=== PATIENT | male | born 1940 | race Caucasian/White ===

== ENCOUNTER → 2024-06-18 | Outpatient (BNVA) | payer MEDICARE, BC, SELFPAY | END | disposition home or self-care (01) | PROVIDERS: PCP Internal Medicine; Referring Provider Internal Medicine; Visit Provider Urology | DX: N32.89 Other specified disorders of bladder (principal); N32.3 Diverticulum of bladder; N40.1 Benign prostatic hyperplasia with lower urinary tract symptoms; N13.8 Other obstructive and reflux uropathy; C61 Malignant neoplasm of prostate; I10 Essential (primary) hypertension; J44.9 Chronic obstructive pulmonary disease, unspecified | CPT/HCPCS: 52000; 81003; A4217; A4649; C1894; J3260; A9270 ==

== ENCOUNTER → 2024-07-02 | Outpatient (BNVA) | payer MEDICARE, BC, SELFPAY | END | disposition home or self-care (01) | PROVIDERS: PCP Family Medicine; Referring Provider Family Medicine; Visit Provider Urology | DX: C61 Malignant neoplasm of prostate (principal); Z90.79 Acquired absence of other genital organ(s); Z46.6 Encounter for fitting and adjustment of urinary device; I10 Essential (primary) hypertension; J44.9 Chronic obstructive pulmonary disease, unspecified | CPT/HCPCS: 99212; G0463 ==

== ENCOUNTER → 2024-07-02 | Outpatient (CLI) | payer MEDICARE, BC, SELFPAY ==
--- NOTE | 2024-07-02 10:42 | XR_ITS ---
Examination: Cystogram with KUB Fluoroscopy 12 spot fluoroscopic films of the bladder AP KRUGER PERUVIAN crosstable lateral pelvis films Exam date and time: July 02, 2024 1048 hours INDICATIONS: Post prostate surgery one week ago TECHNIQUE AND FINDINGS: 300 cc Cystografin instilled with 12 spot fluoroscopic films of the bladder fluoroscopy time 0.22 minutes Urinary bladder appears intact Bladder is trabeculated No ureteral reflux IMPRESSION: Intact urinary bladder
== END | disposition home or self-care (01) ==
LOC: CDIM 10:31
PROVIDERS: Referring Provider Urology; Visit Provider Urology
DX: C61 Malignant neoplasm of prostate (principal)
CPT/HCPCS: 51600; 74430; Q9958

== ENCOUNTER → 2024-09-01 | Outpatient (CLI) | payer MEDICARE, BC, SELFPAY ==
[2024-09-01 17:07] LABS: Prostate Specific Antigen < 0.10 ng/mL (0-4.00)
== END | disposition home or self-care (01) ==
PROVIDERS: PCP Internal Medicine; Referring Provider Radiology Therapeutic Radiology; Visit Provider Radiology Therapeutic Radiology
DX: C61 Malignant neoplasm of prostate (principal)
CPT/HCPCS: 36415; 84153

== ENCOUNTER 2024-09-11 08:49 | Outpatient (RCR) | payer MEDICARE, BC, SELFPAY ==
--- NOTE | 2024-09-01 16:59 | CTCCONSULT_ITS ---
[facility] [address] [place], [place] [address] Consultation Note Date: 09/01/2024 MR#: [id number] Name: BOB MEADOWS : 1940 Dx: C61 Malignant neoplasm of prostate Attending physician. Lee España MD Referring physician. Dhara Thompson MD Reason for consultation. Patient was prostate CA status post radical prostatectomy pT3aN1 referr ed for postop radiation therapy History of Present Illness: Patient is a 84-year-old gentleman following elevated PSA of 19.0 on 02/18 and prostate biopsy 05/08/2024 [place] 6 or 7 CA the prostate who underwent radical prostatectom y for prostate CA 06/24/[address] Canales at [facility]. The tumor was group 5 [place] score 4+5 = 9 acinar adenocarcinoma extraprostatic extension noted, invasive carcinoma present at margin 1 of 10 lymph nodes removed had mets. pT3aN1. Imaging studies of abdominal pelvis preop 06/23/2024 haroldo wed no evidence of mets. Posttreatment PSA reportedly was rising not available to myself. Patient n ow referred for radiation oncology consultation. Past Medical History: COPD high blood pressure kidney stones mumps prostatism Meds. 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 Review of Systems: Has had leaky urine since surgery. Physical Exam: General: Adequate nourished appearing gentleman in no acute distress HEENT: Atraumatic normocephalic extraocular is intact no oral lesions no cervical or supraclavicular apathy CV: Chest clear to auscultation heart regular rate and rhythm ABD: Soft no organomegaly or tenderness EXT: No signs of clubbing or edema Assessment:1. pT3pN1 group 5 Sharmaine's 9 CA o 06/24/2024 Prostate CA status post radical prostatectom y [facility]. 2. Rising PSA reportedly noted at [facility] result not immediately available to myself. 3. Considering the high risk features noted at time of surgery and rising PSA I believe that postope ration radiation therapy is justified along with concomitant Lupron injections 1 to 2 years worth. 6 840 cGy via modern VMAT method was discussed with patient with side effects explained. 4.. Thank you very much for allow me to evaluate this very nice patient. Cc: Lee Thompson MD Electronically signed by: Rajat Price MD, DABR 09/01/2024 4:56 PM
--- NOTE | 2024-09-01 17:01 | CTCTXPLNST_ITS ---
[facility] [place] [address] [place], [place] [address] Physician Clinical Treatment Planning Note Date of Service: 09/01/2024 Name: BOB MEADOWS : 1940 The patient has agreed to proceed with Radiation therapy. Tests and supporting medical records were interpreted to assist in defining the tumor location and extent of disease. Further imaging will be necessary to contour and delineate the volume to which the XRT will be provided. A. Treatment Intent: Curative B. Modality: 10 MV C. Requested Technique: VMAT D. Treatment Site: Pelvis E. Critical structures to be contoured on plan: F. In order to accomplish this plan, I am ordering/Prescribing the followin. Simulations (s) will be performed to accomplish a reproducible treatment position, to determine op timal treatment portals/beam arrangements, to design beam modifying devices and verify treatment port als on patient prior to the commencement of Radiation Therapy. Pelvis 2. Devices; for immobilization and beam shaping: Vac-Didier 3. CT Guidance for placement of XRT cabrera Scan area: 4. Portal images Frequency: 5. Invivo transit dose measurement once per week on all VMAT patients. 6. Special Physics Consult Requested for: 7. Other requests: G. Dose Objectives: Curative Electronically signed by: Rajat Price M.D. 09/01/2024 4:59 PM
--- NOTE | 2024-09-01 17:03 | CTCTXPLNST_ITS ---
Radiation Oncology Treatment Planning Sheet Name: BOB MEADOWS MR#: [id number] : 1940 Dx: C61 Malignant neoplasm of prostate Date of Service: 09/01/2024 Account #: ?? Pt Treatment Intent: curative palliative other: Stage: Procedure CPT # Ordered Spec. Procedure 12080 Fabian Complex (set-up) 49453 pelvis 1 Fabian Simple 64475 IMRT Plan 99044 1 MLC Devices VMAT 97825 3 Fabian 3 D 89848 TRTMT dev Complex 26515 Vac-Didier 1 TRTMT dev simple 68361 Basic Adam 76176 6 Special Dosimetry 11015 Spec Physics 30929 Port Films 48469 SRS Cranial/1FX 32014 SBR 5 FX or Less /ex: 5 = 5 fx 25794 IMRT Simple 29391 24845 38 IMRT Complex 37685 IGRT 77689 35 Rad del com 6-10 57306 Rad del com 11- 13356 Cont Med Physics 54571 7 Treatment Planning 71221 1 Rad del com 20 mev 66442 Rad del inter 6-10 65038 Rad del inter 11 77579 Rad del simple 6-10 25855 Rad del simple 11-19 08241 Special Port Plan 63532 TRTMT dev inter 51387 Isodose Complex 29239 Isodose simple 86787 Resp Motion Mgmt Simulation 16131 Placement of Fiducial Markers 66549 Electronically Signed By: Rajat Price MD, DABR 09/01/2024 5:00 PM
== END 2024-09-11 23:59 | disposition home or self-care (01) ==
LOC: SCTC 08:49
PROVIDERS: PCP Family Medicine; Referring Provider Urology; Visit Provider Radiology Therapeutic Radiology
DX: Z51.0 Encounter for antineoplastic radiation therapy (principal); C61 Malignant neoplasm of prostate; Z90.79 Acquired absence of other genital organ(s); Z79.818 Long term (current) use of other agents affecting estrogen receptors and estrogen levels
CPT/HCPCS: 77014; 77290; 77300; 77301; 77334; 77338; 77385

== ENCOUNTER 2024-10-09 09:01 | Outpatient (RCR) | payer MEDICARE, BC, SELFPAY ==
--- NOTE | 2024-09-14 14:30 | CTCTRTNOTE_ITS ---
[facility] [address] [place], [place] [address] Weekly Management Date: 09/14/2024 ?? Name: BOB MEADOWS : 1940 A. Patient is currently at 720 cGy. B. Patient is tolerating treatment well. C. Resume radiation therapy. Electronically signed by: Rajat Price M.D. 09/14/2024 2:28 PM
== END 2024-10-09 23:59 | disposition home or self-care (01) ==
LOC: SCTC 09:01
PROVIDERS: PCP Internal Medicine; Referring Provider Internal Medicine; Visit Provider Radiology Therapeutic Radiology
DX: Z51.0 Encounter for antineoplastic radiation therapy (principal); C61 Malignant neoplasm of prostate
CPT/HCPCS: 77336; 77385

== ENCOUNTER 2024-10-11 12:15 | Inpatient (IN) | payer MEDICARE, BC, SELFPAY ==
[2024-10-11] VITALS (8 sets, daily range): BP systolic 133–151; BP diastolic 75–92; PULSE 75–98; RESP 16–98; TEMP 36.2–37.1; O2SAT 95–97; BMI 23.3
--- NOTE | 2024-10-11 12:32 | EKG_ITS ---
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
--- NOTE | 2024-10-11 12:32 | XR_ITS ---
Examination: CT brain head without contrast. 2-D sagittal coronal reconstructions Date and time of exam:October 11, 2024 1230 hrs. Indications: Stroke alert, onset focal neurologic deficit beginning 10:00 AM CTDI: vol (mGy):52.1 DLP: (mGycm):1049 Technique: Multiple CT axial sections of the brain have been obtained, 5 mm slice thickness. Contrast has not been administered. 2-D sagittal, coronal reconstructions have been obtained Low dose protocols were performed. One or more of the following dose reduction techniques were used; automated exposure control, adjustment of the mA and/or KV according to patient size, use of iterative reconstruction technique. Findings: No significant ventricular enlargement. Intra-axial or extra-axial hemorrhage density is not seen. No mass effect or midline shift Basal cisterns are not remarkable. Fourth ventricle is midline. Cranial vault intact. Impression: Negative for acute hemorrhage, mass effect or midline shift
--- NOTE | 2024-10-11 12:32 | XR_ITS ---
Examination: CTA carotids with intravenous contrast CTA brain, head with intravenous contrast. 2-D sagittal, coronal reconstructions. 3-D reconstructions. Exam date and time: October 11, 2024 1240 hrs. Indications: Stroke alert, onset focal neurologic deficit today CTDI: vol (mGy) 21.6 DLP: (mGycm) 478 Technique: Multiple CTA axial brain, head carotid images post intravenous contrast injection 75 cc, Isovue-370. 2-D sagittal, coronal reconstructions. 3-D reconstructions, 3-D post processing including vascular maximum intensity projection images. Low dose protocols were performed. One or more of the following dose reduction techniques were used; automated exposure control, adjustment of the mA and/or KV according to patient size, use of iterative reconstruction technique. Findings: No significant common carotid carotid bifurcation or internal carotid artery stenoses Dominant left vertebral artery with no significant stenoses No cerebral large vessel arterial occlusions or thrombus Impression: No significant neck arterial stenoses No cerebral large vessel arterial occlusions or thrombus
--- NOTE | 2024-10-11 12:33 | PD.EDRME ---
Rapid Medical Screening Exam RME Arrival date/time: 10/11/24 12:15 84 yo m present to Ed for c/o of alter mental status, searching for words per . last well known was 1 hour ago. I have greeted and performed a focused initial assessment of this patient. A comprehensive ED assessment and evaluation of the patient, analysis of all test results, and completion of the medical decision making process will be conducted by additional ED providers. Chief Complaint: General Adult/Misc Complain Time Seen by Provider: 10/11/24 12:26 Vital signs: Vital Signs Temperature 98.7 F 10/11/24 12:25 Pulse Rate 98 10/11/24 12:25 Respiratory Rate 16 10/11/24 12:25 Blood Pressure 151/91 H 10/11/24 12:25 Pulse Oximetry (%) 95 10/11/24 12:25 Oxygen Delivery Method Room Air 10/11/24 12:25
--- NOTE | 2024-10-11 12:55 | PRELIM_ITS ---
CT scan of the head without intravenous contrast (axial sections with sagittal and coronal reformats) October 11, 2024 1234 hours Clinical history: Focal neuro deficit, stroke suspected. Comparison: No prior study is available for comparison at the time of interpretation Findings: There is no evidence of intracranial hemorrhage, mass effect or midline shift. There are periventricular white matter hypodensities, compatible with chronic small vessel ischemia. There is moderate volume loss. The calvarium is unremarkable. Moderate mucosal thickening is seen in bilateral ethmoid sinuses. The mastoid air cells and the other visualized paranasal sinuses are clear. Impression: No evidence of intracranial hemorrhage, mass effect or midline shift. If there are persistent clinical symptoms or additional clinical concerns, consider MRI. Periventricular chronic small vessel ischemia and volume loss. Report Electronically Signed By: Jamie Espinoza 10/11/2024 12:54:32 PM [EST]
--- NOTE | 2024-10-11 12:55 | EDNOTE_ITS ---
ED General RME/HPI General Chief complaint: General Adult/Misc Complain Stated complaint: SILENT STROKE , INAPPROPRIATE LAUGH, DISORIENTED Time Seen by Provider: 10/11/24 12:26 Arrival date/time: 10/11/24 12:15 CC: Forgetful memory HPI last known normal was at 10:45 AM at 11:00 noted the patient was forgetting that he had showered forgetting the date for getting part of his name. No prior history of similar events. Interview with the at 1300, states that most of the symptoms have resolved the patient continues to smoke. Patient recently went off blood thinners. Patient had prostatectomy in the near past. Currently patient is awake alert oriented x 3 Glascow coma 15 with no focal deficits. Spoke with Dr. Priest teleneurologist, who agrees the patient had some minor deficits but does not feel that this is CVA does not meet qualifications for tPA but needs a workup. RME / HPI RME / HPI narrative: 10/11/24 12:15 84 yo m present to Ed for c/o of alter mental status, searching for words per . last well known was 1 hour ago. I have greeted and performed a focused initial assessment of this patient. A comprehensive ED assessment and evaluation of the patient, analysis of all test results, and completion of the medical decision making process will be conducted by additional ED providers. Related Data Home Medications ?Medication ?Instructions ?Recorded ?Confirmed No Known Home Medications 07/02/2406/13 Allergies Allergy/AdvReac Type Severity Reaction Status Date / Time No Known Allergies Allergy Verified 10/11/24 12:21 Review of Systems Review of Systems Narrative Review of Systems: GEN: No fever, no chills, no weight loss EYES: No discharge, no visual changes, no pain HEENT: No ear pain, no congestion, no sore throat PULM: No shortness of breath, no cough, no congestion CV: No chest pain, no dyspnea on exertion, no palpitations GI: No nausea, no vomiting, no diarrhea, no pain, no constipation : No frequency, no urgency, no dysuria MUSC/SKEL: No joint pain, no back pain SKIN: No rash PSYCH: No hallucinations, no depression HEME/LYMPH: No easy bleeding or bruising tendencies NEURO: No weakness, no headache Past Medical History Past Medical History NEUROLOGIC: Negative Neurological Disorders or Seizures CARDIAC: Positive Cardiac Disorders and Hypertension; Negative Congestive Heart Failure RESPIRATORY: Positive Chronic Obstructive Pulmonary Disease (COPD) and Pneumonia (1970s) GASTROINTESTINAL: Positive Gastrointestinal Disorders and Gall Bladder Disease (cholecystectomy) GENITOURINARY: Positive Genitourinary Disorders and Benign Prostatic Hyperplasia; Negative Renal Disease MUSCULOSKELETAL: Negative Musculoskeletal Disorders ENT: Positive Cataracts ([place]) ENDOCRINE: Negative Endocrine Disorders, Diabetes Mellitus Type 1 or Diabetes Mellitus Type 2 HEMATOLOGIC: Negative Blood Disorders OTHER HISTORY: Positive Chicken Pox and Mumps; Negative Autoimmune Disease, Blood Transfusions, Blood Transfusion Reaction, Anesthesia Reactions or MRSA Family History FAMILY HISTORY: Positive Family Cardiac Disorders (HYPERTENSION) and Family Cancer (SISTER-UTERINE) Surgical History SURGICAL: Positive Tonsillectomy, Abdominal Surgery and Open Reduction Internal Fixation (Right ankle fracture repair) Social History SMOKING STATUS: Current every day smoker ED Exam Narrative Physical exam: [General: Not in any acute distress Head normocephalic HEENT: Eyes: Pupils are PERRLA EOMs are intact mouth pink moist membranes uvula is midline swallow symmetrical phonation is normal. All other subsystems of ATTR within acceptable limits Neck is supple nontender no JVD no edema Chest equal chest rise nontender to palpation Respiratory: Clear to auscultation no wheezes crackles or rubs CV: Rate rhythm is regular no murmurs rubs or clicks Abdomen is flat, soft nontender no masses positive bowel sounds all 4 quadrants Back: No CVA tenderness no spinous process tenderness from cervical spine thoracic and lumbar spine Skin: Intact no petechiae rash induration ulceration or crepitus Extremities: Moving all extremity against resistance cap refill less than 2 seconds neurosensory intact Neuro: Awake alert oriented x3 Glascow coma 15 no focal deficits] Course Course Course Narrative: Reassessment of this patient at 1400, the patient has had most of his symptoms resolved however the reports, who is at bedside, but the patient still has some minor memory deficits. Patient's case discussed with resident for Dr. Manjarrez agrees to accept the patient for admission. Patient and are in agreement with this plan. Quality Measures none Orders Category Date Time Status Bedside Blood Glucose NOW Care 10/11/24 12:32 Active Bedside COVID-19 Antigen Test NOW Care 10/11/24 13:02 Active Bedside Influenza A&B Antigen Test NOW Care 10/11/24 13:02 Completed Health Unit Coordinator NOW Care 10/11/24 12:32 Active Continuous Pulse Oximetry NOW Care 10/11/24 12:32 Completed EKG (ED ONLY) *Do not use* NOW Care 10/11/24 12:32 Completed In and Out Catheter NEEDED Care 10/11/24 12:32 Active Insert IV NOW Care 10/11/24 12:32 Active NIH Stroke Scale now Care 10/11/24 12:32 Active NPO NOW Care 10/11/24 12:32 Active Nurse Swallow Screen x1 Care 10/11/24 12:32 Active Consult to Neurology / Tele-Neurology Routine Cons 10/11/24 12:[address] angio stroke protocol Stat Exams 10/11/24 12:[address] stroke protocol Stat Exams 10/11/24 12:32 Completed EKG (ED Only) Stat Exams 10/11/24 12:32 Draft XR chest 1V Stat Exams 10/11/24 13:55 Ordered CBC Stat Lab 10/11/24 12:38 Completed Comprehensive Metabolic Panel Stat Lab 10/11/24 12:38 Completed Magnesium Stat Lab 10/11/24 12:38 Completed Partial Thromboplastin Time Stat Lab 10/11/24 12:38 Completed Prothrombin Time with INR Stat Lab 10/11/24 12:38 Completed Troponin I Stat Lab 10/11/24 12:38 Completed Oxygen Delivery NOW RT 10/11/24 12:32 Active Vital Signs Vital signs: Vital Signs Temperature 98.7 F 10/11/24 12:25 Pulse Rate 98 10/11/24 12:25 Respiratory Rate 16 10/11/24 12:25 Blood Pressure 151/91 H 10/11/24 12:25 Pulse Oximetry (%) 95 10/11/24 12:25 Oxygen Delivery Method Room Air 10/11/24 12:25 [facility] Patient data External records reviewed:: [facility] previous records Clinical information provided by:: patient and spouse Social determinants that could affect healthcare access:: none Patient has the following chronic illnesses:: Prostatectomy smoking history How is presenting disease/condition affected by chronic disease/condition?: u neffected by Evaluation data The following diagnostics were reviewed and interpreted by me:: lab results, radiology exam(s) and EKG tracing(s) Lab and/or radiology exams considered but not ordered:: EKG performed at 1332 ventricular of 82 NV interval 162 QRS of 94 QTc of 396 this is sinus rhythm baseline artifact in 1 aVL 3 and 3. CBC shows no leukocytosis anemia thrombocytopenia Coags show PT of 12.8 no other leg coag abnormalities. CMP shows a chloride of 110 no other electrolyte imbalances no renal impairment transaminitis or T. bili elevation Magnesium at 2.[address] of the head negative for any acute finding requires emergent or immediate intervention. Interpretation Summary: TIA Medications Medications considered but not ordered:: None Medication administrations:: None Consultations Consultation(s) initiated? (list below): Yes Diagnosis Differential Diagnosis ED Complaint MDM: CVA TIA metabolic disorder Most likely diagnosis given after review of the tests above:: TIA Admission Indicated Admission indicated?: indicated Explain why admission is indicated or not indicated:: Further medical workup Admission Request Was there a request for admission?: No Disposition Plan Disposition Plan: Admit Medical Decision Making Differential Diagnosis Differential Diagnosis: CVA TIA metabolic disorder Lab Data 10/11/24 12:38 10/11/24 12:38 Labs: Lab Results 10/11/24 Range/Units 12:38 WBC 6.6 (3.8-10.6) Thou/mm3 RBC 4.84 (4.50-5.90) Miln/mm3 Hgb 14.4 (13.5-16.0) g/dL Hct 43.0 (41.0-53.0) % MCV 89 (80-100) fL MCH 29.8 (25.0-35.0) pg MCHC 33.5 (31.0-37.0) g/dl RDW Std Deviation 43.1 (35.1-43.9) fL Plt Count 207 (140-440) Thou/mm3 Neut % (Auto) 61 (37-80) % Lymph % (Auto) 21 (10-50) % [place] % (Auto) 11 (0-12) % Eos % (Auto) 7 (0-10) % Baso % (Auto) 0 (0-2.5) % Neut # (Auto) 4.0 (1.8-7.7) Thou/mm3 Lymph # (Auto) 1.4 (1.0-4.8) Thou/mm3 [place] # (Auto) 0.7 (0.0-0.8) Thou/mm3 Eos # (Auto) 0.4 (0.0-0.5) Thou/mm3 Baso # (Auto) 0.0 (0.0-0.2) Thou/mm3 Immature Gran # (Auto) 0.02 H (0.00-0.00) Thou/mm3 Absolute Nucleated RBC 0.00 (0.00-0.00) Thou/mm3 Immature Gran % 0 (0-0) % Nucleated RBC % 0 (0) /100 WBC PT 12.8 H (9.0-12.2) Seconds INR 1.2 (0.9-1.3) APTT 27.1 (22.0-36.0) Seconds Sodium 143 (136-145) mMol/L Potassium 4.1 (3.4-5.1) mMol/L Chloride 110 H (98-107) mMol/L Carbon Dioxide 25.3 (20.0-31.0) mMol/L Anion Gap 8 (7-16) BUN 18 (9-23) mg/dL Creatinine 1.0 (0.6-1.3) mg/dL Estim Creat Clear Calc 45.0 L (>60) mL/min eGFR > 60 (60 - ) See Note BUN/Creatinine Ratio 18 (12-20) Ratio Glucose 85 (74-106) mg/dL Calculated Osmolality 285 (275-295) Calcium 9.7 (8.3-10.6) mg/dL Corrected Calcium 9.7 (8.5-10.1) mg/dL Magnesium 2.0 (1.6-2.6) mg/dL Total Bilirubin 0.4 (0.3-1.2) mg/dL AST 13 (0-34) U/L ALT 12 (10-49) U/L Alkaline Phosphatase 109 (46-116) U/L Troponin I < 0.002 (0.0-0.045) ng/mL Total Protein 6.8 (5.7-8.2) gm/dL Albumin 4.2 (3.4-4.8) gm/dL Globulin 2.6 (2.3-3.5) gm/dL Albumin/Globulin Ratio 1.6 (1.2-2.2) Discharge Plan Plan Patient Disposition: Other Care w/in Hosp ([facility]) Patient condition on transfer: Stable Prescriptions/Referrals Prescriptions/Med Rec: No Action No Known Home Medications Referrals: Lee España MD [Primary Care Provider] - In 1 week Problem List Clinical Impression: Brain TIA Patient/Caregiver Discharge Instructions Print Language: Yakut Stand Alone Forms: Isa Award Info., Patient Portal Info Letter PA/VIRTUALIZATION CONSULTANT Supervising Physician PA/VIRTUALIZATION CONSULTANT Supervising Physician: Gigi Dorantes ENP
--- NOTE | 2024-10-11 13:01 | PD.TNEURO ---
Tele Neuro Consultation Consultation Date 10/11/24 Most Recent Vital Signs Last Vital Signs Temp 98.7 F 10/11/24 12:25 Pulse 98 10/11/24 12:25 Resp 16 10/11/24 12:25 BP 151/91 H 10/11/24 12:25 Pulse Ox 95 10/11/24 12:25 O2 Del Method Room Air 10/11/24 12:25 Consultation Narrative [facility] Tele[facility]urology Consult Services Patient Name: Henrik Avila Date of : 1940 Identification Number: Date of Service: 10/11/2024 12:31:20 Diagnosis: ? G93.41 - Encephalopathy Metabolic Impression: ? Transient confusional episode concerning for metabolic encephalopathy versus seizure. Recommend MRI brain to assess for subacute ischemia or structural pathology and EEG to evaluate for subclinical seizures. Given low suspicion for stroke and normal blood pressure, thrombolytics are not indicated. Our recommendations are outlined below. Recommendations: ? Stroke/Telemetry Floor ? Neuro Checks ? Bedside Swallow Eval ? DVT Prophylaxis ? IV Fluids, Normal Saline ? Head of Bed 30 Degrees ? Euglycemia and Avoid Hyperthermia (PRN Acetaminophen) Sign Out: ? Discussed with Emergency Department Provider Advanced Imaging: Advanced Imaging Deferred because: Non-disabling symptoms as verified by the patient; no cortical signs so not consistent with LVO Metrics: Last Known Well: 10/11/2024 11:00:00 Dispatch Time: 10/11/2024 12:31:20 Arrival Time: 10/11/2024 12:19:00 Initial Response Time: 10/11/2024 12:31:20 Symptoms: confusion . Initial patient interaction: 10/11/2024 12:48:41 NIHSS Assessment Completed: 10/11/2024 12:49:39 Patient is not a candidate for Thrombolytic. Thrombolytic Medical Decision: 10/11/2024 12:49:41 Patient was not deemed candidate for Thrombolytic because of following reasons: Resolved symptoms . I personally Reviewed the CT Head and it Showed no acute changes Primary Provider Notified of Diagnostic Impression and Management Plan on: 10/11/2024 12:55:23 History of Present Illness: Patient is a 84 year old Male. Patient was brought by private transportation with symptoms of confusion . The patient is an 83-year-old male who was last seen at his baseline at 10:45 AM. He was awakened by a trigger event and noted to have an unsteady gait but was subsequently confused, amnestic to recent events and his own birthday, yet able to recognize his . Symptoms began around 11:00 AM. No focal weakness or speech disturbance was reported. Past medical history is significant for prostate cancer treated with radiation. No recent infections, medication changes, or preceding illness were noted. No witnessed seizure activity, tongue biting, or postictal lethargy. Past Medical History: ? Hypertension ? There is no history of Diabetes Mellitus ? There is no history of Atrial Fibrillation ? There is no history of Stroke Medications: No Anticoagulant use No Antiplatelet use Reviewed EMR for current medications Allergies: Reviewed,NKDA Social History: Patient Is: Smoking: No Alcohol Use: No Drug Use: No Family History: There is no family history of premature cerebrovascular disease pertinent to this consultation ROS : 14 Points Review of Systems was performed and was negative except mentioned in HPI. Past Surgical History: There Is No Surgical History Contributory To Today?s Visit Examination: BP(151/91), Pulse(87), 1A: Level of Consciousness - Alert; keenly responsive + 0 1B: Ask Month and Age - Both Questions Right + 0 1C: Blink Eyes & Squeeze Hands - Performs Both Tasks + 0 2: Test Horizontal Extraocular Movements - Normal + 0 3: Test Visual Martinez - No Visual Loss + 0 4: Test Facial Palsy (Use Grimace if Obtunded) - Normal symmetry + 0 5A: Test Left Arm Motor Drift - No Drift for 10 Seconds + 0 5B: Test Right Arm Motor Drift - No Drift for 10 Seconds + 0 6A: Test Left Leg Motor Drift - No Drift for 5 Seconds + 0 6B: Test Right Leg Motor Drift - No Drift for 5 Seconds + 0 7: Test Limb Ataxia (FNF/Heel-[place]) - No Ataxia + 0 8: Test Sensation - Mild-Moderate Loss: Less Sharp/More Dull + 1 9: Test Language/Aphasia - Normal; No aphasia + 0 10: Test Dysarthria - Normal + 0 11: Test Extinction/Inattention - No abnormality + 0 NIHSS Score: 1 Pre-Morbid Modified [place] Scale: Unable to assess Spoke with : dr. patton This consult was conducted in real time using interactive audio and video technology. Patient was informed of the technology being used for this visit and agreed to proceed. Patient located in hospital and provider located at home/office setting. Patient is being evaluated for possible acute neurologic impairment and high probability of imminent or life-threatening deterioration. I spent total of 45 minutes providing care to this patient, including time for face to face visit via telemedicine, review of medical records, imaging studies and discussion of findings with providers, the patient and/or family. Dr Caleb Priest [facility] For Inpatient follow-up with [facility] physician please call [facility] at . As we are not an outpatient service for any post hospital discharge needs please contact the hospital for assistance. If you have any questions for the [facility] physicians or need to reconsult for clinical or diagnostic changes please contact us via [facility] at .
[2024-10-11 13:11] LABS: Basophils % (Auto) 0 % (0-2.5); Eosinophils # (Auto) 0.4 Thou/mm3 (0.0-0.5); Eosinophils % (Auto) 7 % (0-10); Hemoglobin 14.4 g/dL (13.5-16.0); Immature Granulocytes % (Auto) 0 % (0-0); Immature Granulocytes Auto 0.02 Thou/mm3 (0.00-0.00); Lymphocytes # (Auto) 1.4 Thou/mm3 (1.0-4.8); Lymphocytes % (Auto) 21 % (10-50); Mean Corpuscular HGB Conc 33.5 g/dl (31.0-37.0); Mean Corpuscular Hemoglobin 29.8 pg (25.0-35.0); Mean Corpuscular Volume 89 fL (80-100); Monocytes # (Auto) 0.7 Thou/mm3 (0.0-0.8); Monocytes % (Auto) 11 % (0-12); Neutrophils % (Auto) 61 % (37-80); Nucleated Red Blood Cell % 0 /100 WBC (0); Platelet Count 207 Thou/mm3 (140-440); RDW Standard Deviation 43.1 fL (35.1-43.9); Red Blood Count 4.84 Miln/mm3 (4.50-5.90); White Blood Count 6.6 Thou/mm3 (3.8-10.6)
[2024-10-11 13:28] LABS: INR 1.2 (0.9-1.3); Partial Thromboplastin Time 27.1 Seconds (22.0-36.0); Prothrombin Time 12.8 Seconds (9.0-12.2)
[2024-10-11 13:41] LABS: Alanine Aminotransferase 12 U/L (10-49); Albumin, Serum 4.2 gm/dL (3.4-4.8); Albumin/Globulin Ratio 1.6 (1.2-2.2); Alkaline Phosphatase 109 U/L (46-116); Anion Gap 8 (7-16); Aspartate Amino Transferase 13 U/L (0-34); BUN/Creatinine Ratio 18 Ratio (12-20); Bilirubin,Total 0.4 mg/dL (0.3-1.2); Blood Urea Nitrogen 18 mg/dL (9-23); Calcium 9.7 mg/dL (8.3-10.6); Calcium (Corrected) 9.7 mg/dL (8.5-10.1); Carbon Dioxide 25.3 mMol/L (20.0-31.0); Chloride 110 mMol/L (98-107); Globulin 2.6 gm/dL (2.3-3.5); Glucose 85 mg/dL (74-106); Osmolality,Calculated 285 (275-295); Potassium 4.1 mMol/L (3.4-5.1); Sodium 143 mMol/L (136-145); Total Protein 6.8 gm/dL (5.7-8.2); Troponin I < 0.002 ng/mL (0.0-0.045); eGFR > 60 See Note
--- NOTE | 2024-10-11 13:55 | XR_ITS ---
Examination: AP chest single view Technique: AP portable upright chest single view Exam date and time: October 11, 2024 1407 hrs. Comparison May 27, 2024 Indications: Coughing shortness of breath today Findings: Accentuation bronchovascular markings Mild prominence of ventricle Ectatic enlarged thoracic aorta. No lobar pneumonia Stable granuloma right lower lobe compared with May 27, 2024 Moderate osteopenia Impression: Bronchitis pattern
--- NOTE | 2024-10-11 15:21 | ESHP_ITS ---
<Statement entered by Juliet Woodard MD - 10/15/24 04:07> I reviewed above note and agree with findings and plans. I have also personally examined the patient with medicine team and went over assessment and plan with medical team including marketing operations intern and resident physician. Documentation for date of: 10/11/24 HPI History of Present Illness History of present illness: Mr. Avila is an 84-year-old male with past medical history significant for hypertension, COPD, and prostate cancer status post prostatectomy and currently undergoing radiation therapy presented to the ED after noticed sudden onset of confusion. Patient's is at bedside who stated that this morning she noticed that he was forgetful and suddenly very confused which raise concern for him as patient is normally very active and independent. Per patient is very sharp and he takes care of all the bills although taxes and everything around the house but this morning he had taken a shower and a few minutes later he had forgotten that he had taken a shower and was asking the about it and then he proceeded to ask how old he was. Per it was concerning because he repeatedly asked what day of the week it was. Patient denied any similar previous episodes she also noticed that out of nowhere he would burst out laughing about nothing. Patient denied any weakness, slurred speech or asymmetry in face. Pt symtptoms completely resolved, however was concerned as this in not an ordinary behavior for him. Pt was diagnosed with prostate cancer recently and underwent protatectomy in june. Pt is currently undergoing radiation therapy at [facility] his last session is scheduled for November 02. Pt states he felt like he was getting sick on and have been taking over the counter mucinex for 2 days. pt denies any changes to medications, or recent travels. ED Course vitals BP 151/91 HR 82, Saturating above 95% on room air Labs: CBC and CMP unremarable Images: -Head CTA :No significant neck arterial stenoses, No cerebral large vessel arterial occlusions or thrombus -Head CT : Negative for acute hemorrhage, mass effect or midline shift -EKG: Sinus rhythm Teleneuro was consulted by the ED PMH: Primary Hypertension, COPD, prostate cancer s/p protatectomy PSH: Appendectomy, cholecystectomy, right knee ligament repair, right ankle surgery, benign tumor removal on back, cataract surgery, rectal fistula repair surgery, prostatectomy SH: Patient smokes half a pack cigarettes daily for the past 60 years, denies use of illicit drugs denies alcohol Allergies: No known allergies Home Meds: Trelegy, lisinopril Review of Systems Review of Systems Systems Reviewed: All systems reviewed, normal except as documented Exam Vital Signs Temp Pulse Resp BP Pulse Ox O2 Del Method 97.8 F 82 18 142/92 H 96 Room Air 10/11/24 14:00 10/11/24 14:00 10/11/24 14:00 10/11/24 14:00 10/11/24 14:00 10/11/24 14:00 Narrative Exam GENERAL: A&Ox3 . Awake, Not in acute distress NEURO: no focal neurological deficits HEENT: Atraumatic, Normocephalic. mucous membranes moist. Eyes open, symmetrical, & clear HEART: Normal Heart Sounds LUNGS: Clear to auscultation with no wheezing or crackles. ABDOMEN: soft, non-distended, non-tender, bowel sounds heard, no guarding or rebound tenderness SKIN: No Rash or ecchymoses EXTREMITIES: No edema, tenderness, able to move all 4 extremities, pedal pulses palpated NEURO:? ? MENTAL STATUS:?AAOx3 ? LANG/SPEECH: Fluent, intact naming, repetition & comprehension ? CRANIAL NERVES: ? II: Pupils equal and reactive, no RAPD,?normal visual field and fundus ? III, IV, : EOM intact, no gaze preference or deviation ? V: normal ? VII: no facial asymmetry ? VIII: normal hearing to speech ? MOTOR: 5/5 in both upper and lower extremities ? REFLEXES: 4/4 throughout,?bilateral flexor plantars ? SENSORY: Normal to touch, temperature & pin prick in all extremities ? COORD: Normal finger to nose, no tremor Results: Labs 10/12/24 04:22 10/12/24 04:22 Labs: Short CBC 10/11/24 Range/Units 12:38 WBC 6.6 (3.8-10.6) Thou/mm3 Hgb 14.4 (13.5-16.0) g/dL Hct 43.0 (41.0-53.0) % Plt Count 207 (140-440) Thou/mm3 BMP 10/11/24 12:38 Sodium 143 Potassium 4.1 Chloride 110 H Carbon Dioxide 25.3 BUN 18 Creatinine 1.0 Glucose 85 Calcium 9.7 Cardiac Enzymes 10/11/24 Range/Units 12:38 Troponin I < 0.002 (0.0-0.045) ng/mL Liver Function 10/11/24 Range/Units 12:38 Total Bilirubin 0.4 (0.3-1.2) mg/dL AST 13 (0-34) U/L ALT 12 (10-49) U/L Alkaline Phosphatase 109 (46-116) U/L Albumin 4.2 (3.4-4.8) gm/dL Quality Measures Quality Measures none Advance care planning discussed with:: patient Medications Home Medications and Allergies Home Medications ?Medication ?Instructions ?Recorded ?Confirmed ?Type No Known Home Medications 07/02/2406/13 History Allergies Allergy/AdvReac Type Severity Reaction Status Date / Time No Known Allergies Allergy Verified 10/11/24 12:21 Visit Medications Acetaminophen (Acetaminophen 325 Mg Tablet) 325 mg PO Q6HR PRN PRN Reason: FEVER >101 Stop: 11/10/24 15:19 Dextrose (Dextrose 50%-Water Inj 50 Ml Syringe) 25 ml IV Q15MIN PRN PRN Reason: BG 50-70 responsive npo pt Stop: 11/10/24 15:18 Dextrose (Dextrose 50%-Water Inj 50 Ml Syringe) 50 ml IV Q15MIN PRN PRN Reason: BG <50 OR BG <70 & pt unresponsive Stop: 11/10/24 15:18 Ondansetron HCl (Ondansetron Inj 2 Mg/Ml Inj 2 Ml) 4 mg IV Q4HR PRN PRN Reason: NAUSEA OR VOMITING Stop: 11/10/24 15:16 Assessment & Plan Plan Mr. Avila is an 84-year-old male with past medical history significant for hypertension, COPD, and prostate cancer status post prostatectomy and currently undergoing radiation therapy presented to the ED after noticed sudden onset of confusion. #Acute encephalopathy #Acute CVA rule out -DDx: TIA, transient global amnesia - Per this morning Pt was forgetting routine events like taking a shower or not, Pt was unable to recall how old he is. Pt repeatedly ask the same questions after being answer, pt couldn't remember what day it is. Pt is otherwise very sharp and performs ADL independently. Teleneuro was consulted, with recommendation of MRI pending to rule out CVA. CVA r/o -LKW: 10/11/2024 11:00:00 -NIHSS Score: 1 -pre morbid rank scale: Unable to assess -Tele neuro consulted, recommendations appreciated -Head CTA :No significant neck arterial stenoses, No cerebral large vessel arterial occlusions or thrombus -Head CT : Negative for acute hemorrhage, mass effect or midline shift Plan: - Neuro checks q6HR - Keep head of bed elevated at 30 degrees -?limit sedating meds - Euglycemia and Avoid Hyperthermia (PRN Acetaminophen) -?Allow permissive HTN for first 24 hours than slowly and gradually goal normotension thereafter -?qdyir-kczvaqtpm-nqulzssowm workup (especially with U/A, UCx, CXR) -?MRI brain when able -?echo with bubble study ordered - follow up lipid panel, HbA1c, TSH with free T4 - Referral to PT/OT/speech therapy - In house neurologist consulted, appreciated recommendations #Primary Hypertension - On admission Pt BP is 151/91, Pt home med include lisinopril 10mg daily -Will hold home antihypertensive for permissive HTN for 24 hours. #Prostate Cancer s/p protatectomy -Pt was recently diagnosed with prostate cancer, underwent prostatectomy in Jun 2024. -Pt is currently under going radiation therapy at [facility] -Pt follow Dr. Price and Dr. Thompson outpatient #COPD #Nicotine dependence -Pt has history of smoking 1/2 cigarettes daily daily for 60 years -Although pt is not on home oxygen he does use trelegy ellipta at home -Duonebs PRN -Nicotine Patch ordered for PRN Health Maintenance Disposition: telemetry acute CVA rule out DVT Prophylaxis: Heparin 5000 units SC Q8 hrs Diet: Cardiac diet Lines: Peripheral lines Code status: DNR/DNI Assessment and plan discussed with my senior resident Dr. Lucas & attending physician Dr. Vance Irvin (PGY-1)- Internal medicine resident
--- NOTE | 2024-10-11 15:35 | PC.NURSE ---
Pt. here from home to room 1, pt. states he took a shower this morning and after he got out of the shower pt. states he wasn't answering his appropriately and his asked him his birthday and pt. couldn't state his birthday. then brought pt. here. Pt. states he had his prostate removed Jun.24 and now he wears a diaper, pt. states he is receiving radiation but it has made him very tired. Pt. states he doesn't take radiation on the weekends. Pt. states he has been coughing since Saturday and taking Mucinex. Pt. states this morning he was coughing up white mucus. Pt. sitting up in bed visiting with his friends, no s/s of distress noted at this time, no SOB noted at this time. Pt. is a GCS of 15 at this time.
[2024-10-11] MEDS: HEPARIN SOD INJ 5000 UNIT/ML VIAL SC (21:12)
[2024-10-12] VITALS (10 sets, daily range): BP systolic 114–138; BP diastolic 66–95; PULSE 76–105; RESP 18–95; TEMP 36.4–36.7; O2SAT 95–98
--- NOTE | 2024-10-12 | XR_ITS ---
Examinations: MRI Brain without intravenous contrast. MRA brain without intravenous contrast. MRA carotids without intravenous contrast 3-D vascular reconstructions Date and time of exam: September 14, 2024 0916 hours INDICATIONS: Prostate cancer diagnosis post prostatectomy, sudden onset confusion focal neurologic deficit yesterday Technique: Multiple axial and sagittal images of the brain have been obtained MRA brain carotid images without contrast obtained, including 3-D postprocessing, vascular maximum intensity projection images Findings: Sellaturcica is not enlarged. The optic chiasm and infundibular stalk are not remarkable. Prepontine and interpeduncular cisterns are not enlarged. No localized enlargement of the medulla or moustapha. Fourth ventricle and cerebellar tonsils normal in position. Subacute hemorrhage is not seen. Fourth ventricle is midline. Mass in the cerebellopontine angle region is not evident. 7th and 8th nerve complexes exhibits symmetry. Globes are symmetrical with no retro-orbital mass. Increased white matter signal prominent Diffusion-weighted images demonstrate no focus of restricted diffusion Mass-effect upon the ventricular system is not identified. MRA carotid images degraded by patient motion. MRA brain images no large vessel occlusions Impression: Negative for acute hemorrhage mass effect or midline shift No acute infarct Prominent chronic microvascular white matter change No large vessel cerebral arterial occlusions
[2024-10-12 04:42] LABS: Basophils % (Auto) 0 % (0-2.5); Eosinophils # (Auto) 0.6 Thou/mm3 (0.0-0.5); Eosinophils % (Auto) 9 % (0-10); Hematocrit 38.8 % (41.0-53.0); Hemoglobin 12.7 g/dL (13.5-16.0); Immature Granulocytes % (Auto) 0 % (0-0); Immature Granulocytes Auto 0.02 Thou/mm3 (0.00-0.00); Lymphocytes # (Auto) 1.4 Thou/mm3 (1.0-4.8); Lymphocytes % (Auto) 22 % (10-50); Mean Corpuscular HGB Conc 32.7 g/dl (31.0-37.0); Mean Corpuscular Hemoglobin 29.3 pg (25.0-35.0); Mean Corpuscular Volume 89 fL (80-100); Monocytes # (Auto) 0.7 Thou/mm3 (0.0-0.8); Monocytes % (Auto) 11 % (0-12); Neutrophils # (Auto) 3.7 Thou/mm3 (1.8-7.7); Neutrophils % (Auto) 57 % (37-80); Nucleated Red Blood Cell % 0 /100 WBC (0); Platelet Count 181 Thou/mm3 (140-440); RDW Standard Deviation 42.7 fL (35.1-43.9); Red Blood Count 4.34 Miln/mm3 (4.50-5.90); White Blood Count 6.4 Thou/mm3 (3.8-10.6)
[2024-10-12 05:02] LABS: Glucose Estimated Average 105 mg/dL (80-131); Hemoglobin A1C 5.3 % Hgb (4.8-6.0)
[2024-10-12] MEDS: HEPARIN SOD INJ 5000 UNIT/ML VIAL SC ×3 (05:11→21:27)
[2024-10-12 05:28] LABS: Alanine Aminotransferase 10 U/L (10-49); Alkaline Phosphatase 92 U/L (46-116); Anion Gap 8 (7-16); BUN/Creatinine Ratio 16 Ratio (12-20); Bilirubin,Total 0.5 mg/dL (0.3-1.2); Blood Urea Nitrogen 14 mg/dL (9-23); Calcium 9.1 mg/dL (8.3-10.6); Carbon Dioxide 25.8 mMol/L (20.0-31.0); Chloride 110 mMol/L (98-107); Cholesterol 120 mg/dL (132-200); Creatinine (Component) 0.9 mg/dL (0.6-1.3); Estimated Creatinine Clearance 50.1 mL/min (>60); Free T4 (Free Thyroxine) 1.03 ng/dL (0.89-1.76); Glucose 88 mg/dL (74-106); HDL Cholesterol 24 mg/dL (40-60); LDL Cholesterol,Calculated 82 mg/dL (0-130); Magnesium 1.9 mg/dL (1.6-2.6); Osmolality,Calculated 286 (275-295); Phosphorous 3.3 mg/dL (2.4-5.1); Potassium 4.2 mMol/L (3.4-5.1); Sodium 144 mMol/L (136-145); Thyroid Stimulating Hormone 2.07 uIU/mL (0.55-4.78); Total Protein 5.9 gm/dL (5.7-8.2); Triglycerides 69 mg/dL (30-150); eGFR > 60 See Note
[2024-10-12 05:29] LABS: Albumin, Serum 3.5 gm/dL (3.4-4.8); Albumin/Globulin Ratio 1.5 (1.2-2.2); Aspartate Amino Transferase < 8 U/L (0-34); Calcium (Corrected) 9.5 mg/dL (8.5-10.1); Globulin 2.4 gm/dL (2.3-3.5)
--- NOTE | 2024-10-12 09:16 | PC.SS ---
Henrik Avila is a 84-year-old male admitted to [facility] for CvA Workup. SS conducted bedside contact with the patient to complete initial assessment and to discuss discharge planning.? Patient confirmed demographic information. Patient identifies his Leslie Avila [phone] as his surrogate decision maker. Patient resides at home with his . Pt states he is able to complete all ADL?s independently, no need for any source of DME. Pts PCP is Dr. Gil (last visit about 2 months ago) and pharmacy of choice is [facility]. DC option discussed and pt wishes to return home. Pts family will provide transportation upon DC. No further intervention required at this time, dialysis social worker would be available to address any further concerns. DC Plan: Home Contact: Leslie Avila [phone] PCP: Louise
[2024-10-12 10:46] LABS: Collection Type, Urine Clean Catch
[2024-10-12 10:58] LABS: Amorphous Crystals,Urine Present (Absent); Bilirubin,Urine Negative (Negative); Blood,Urine Negative (Negative); Clarity,Urine Turbid (Clear/Hazy); Color,Urine Lt-Yellow (Lt Yel-Yel); Glucose, Urine Negative (Negative); Ketones,Urine Negative (Negative); Leukocyte Esterase,Urine Negative (Negative); Nitrite,Urine Negative (Negative); PH,Urine 7.5 (5.0-7.0); Protein,Urine Negative (Neg - Trace); RBC,Urine 1 /hpf (0-3); Squamous Epithelial Cell,Urine < 1 /hpf (0-5); Urobilinogen,Urine Negative mg/dL (0.0-1.0); WBC,Urine 1 /hpf (0-5)
--- NOTE | 2024-10-12 11:11 | ESPR_ITS ---
<Statement entered by Juliet Woodard MD - 10/17/24 21:52> I reviewed above note and agree with findings and plans. I have also personally examined the patient with medicine team and went over assessment and plan with medical team including international manager and resident physician. <Statement entered by Roman Herbert MD - 10/12/24 18:18> Patient was seen and examined at the bedside. MRI brain was negative for stroke. Patient symptoms have been improving. We are currently pending on echocardiogram with bubble study. Started on aspirin and statin therapy. Neurology recommendations are pending. Continue with current management. All labs and orders were reviewed. I saw and examined the patient, and I agree with current management stated by Dr Albaro MD,PGY1. Plan of care was discussed with the attending physician and resident physician. Disclaimer: Despite multiple revisions, due to the dictation software being used, the document bellow may not be free of grammatical errors including phonetic/typographic errors. However, this does not deter from our commitment to providing health care in the patient's best interest in mind. Dr. Keon MD, PGY 2 Documentation for date of: 10/12/24 Subjective Subjective Interval history: No acute overnight events reported. Pt is seen and examined at bedside this morning. Pt is saturating and resting comfortably on room air. Pt continues to have complete resolution of his symptoms. Pt denies SOB, chest pain, abdominal pain. Pts is at bedside and states she has not notices any changes in speech or memory. Pt has no complains. Exam Vital Signs Temp Pulse Resp BP Pulse Ox O2 Del Method 98.1 F 80 19 127/95 H 95 Room Air 10/12/24 08:00 10/12/24 08:00 10/12/24 08:00 10/12/24 08:00 10/12/24 08:00 10/12/24 08:00 Narrative Exam GENERAL: A&Ox3 . Awake, Not in acute distress NEURO: no focal neurological deficits HEENT: Atraumatic, Normocephalic. mucous membranes moist. Eyes open, symmetrical, & clear HEART: Normal Heart Sounds LUNGS: Clear to auscultation with no wheezing or crackles. ABDOMEN: soft, non-distended, non-tender, bowel sounds heard, no guarding or rebound tenderness SKIN: No Rash or ecchymoses EXTREMITIES: No edema, tenderness, able to move all 4 extremities, pedal pulses palpated Objective Labs 10/12/24 04:22 10/12/24 04:22 Labs: Laboratory Results - last 24 hr 10/11/24 10/12/24 10/12/24 12:38 04:22 10:30 WBC 6.6 6.4 RBC 4.84 4.34 L Hgb 14.4 12.7 L Hct 43.0 38.8 L MCV 89 89 MCH 29.8 29.3 MCHC 33.5 32.7 RDW Std Deviation 43.1 42.7 Plt Count 207 181 Neut % (Auto) 61 57 Lymph % (Auto) 21 22 [place] % (Auto) 11 11 Eos % (Auto) 7 9 Baso % (Auto) 0 0 Neut # (Auto) 4.0 3.7 Lymph # (Auto) 1.4 1.4 [place] # (Auto) 0.7 0.7 Eos # (Auto) 0.4 0.6 H Baso # (Auto) 0.0 0.0 Immature Gran # (Auto) 0.02 H 0.02 H Absolute Nucleated RBC 0.00 0.00 Immature Gran % 0 0 Nucleated RBC % 0 0 PT 12.8 H INR 1.2 APTT 27.1 Sodium 143 144 Potassium 4.1 4.2 Chloride 110 H 110 H Carbon Dioxide 25.3 25.8 Anion Gap 8 8 BUN 18 14 Creatinine 1.0 0.9 Estim Creat Clear Calc 45.0 L 50.1 L eGFR > 60 > 60 BUN/Creatinine Ratio 18 16 Glucose [address] Glu mg/dL 105 Hemoglobin A1c 5.3 Calculated Osmolality 285 286 Calcium 9.7 9.1 Corrected Calcium 9.7 9.5 Phosphorus 3.3 Magnesium 2.0 1.9 Total Bilirubin 0.4 0.5 AST 13 < 8 ALT 12 10 Alkaline Phosphatase 109 92 Troponin I < 0.002 Total Protein 6.8 5.9 Albumin 4.2 3.5 D Globulin 2.6 2.4 Albumin/Globulin Ratio 1.6 1.5 Triglycerides 69 Cholesterol 120 L LDL Cholesterol, Calc 82 HDL Cholesterol 24 L Cholesterol/HDL Ratio 5.0 TSH 2.07 Free T4 1.03 Ur Collection Type Clean Catch Urine Color Lt-Yellow Urine Clarity Turbid A Urine pH 7.5 H Ur Specific [place] 1.020 Urine Protein Negative Urine Glucose (UA) Negative Urine Ketones Negative Urine Blood Negative Urine Nitrite Negative Urine Bilirubin Negative Urine Urobilinogen (Auto) Negative Ur Leukocyte Esterase Negative Urine RBC 1 Urine WBC 1 Ur Squamous Epith Cells < 1 Amorphous Crystals Present A Urine Bacteria None Quality Measures Quality Measures none Advance care planning discussed with:: patient and spouse Assessment & Plan Assessment Current Active Medications: Generic Name Dose Route Start Last Admin Trade Name Freq PRN Reason Stop Dose Admin Acetaminophen 325 mg 10/12/24 07:26 Acetaminophen 325 Mg Tablet PO 11/10/24 15:19 Q6HR PRN FEVER >100.3 Albuterol/Ipratropium 3 ml 10/11/24 16:03 Albuterol/Ipratropium (Duoneb) Rt Jonelle 3 Ml Nebu INH 11/10/24 18:59 Q6HRRT PRN shortness of breath orwheezing Aspirin 81 mg 10/12/24 11:15 Aspirin Ec 81 Mg Tabec PO 11/11/24 11:14 QDAY BETZAIDA Atorvastatin Calcium 40 mg 10/12/24 21:00 Atorvastatin Calcium 20 Mg Tablet PO 11/11/24 20:59 HS BETZAIDA Dextrose 25 ml 10/11/24 15:19 Dextrose 50%-Water Inj 50 Ml Syringe IV 11/10/24 15:18 Q15MIN PRN BG 50-70 responsive npo pt Dextrose 50 ml 10/11/24 15:19 Dextrose 50%-Water Inj 50 Ml Syringe IV 11/10/24 15:18 Q15MIN PRN BG <50 OR BG <70 & pt unresponsive Heparin Sodium (Porcine) 5,000 unit 10/11/24 22:00 10/12/24 05:11 Heparin Sod Inj 5000 Unit/Ml Vial SC 10/25/24 21:59 5,000 unit Q8HR BETZAIDA Administration Nicotine 14 mg 10/11/24 16:03 Nicotine Patch 14 Mg/24 Hr Patch.Td24 TOP 11/10/24 16:14 QDAY PRN nicotine withdrawal Ondansetron HCl 4 mg 10/11/24 15:17 Ondansetron Inj 2 Mg/Ml Inj 2 Ml IV 11/10/24 15:16 Q4HR PRN NAUSEA OR VOMITING Plan Mr. Avila is an 84-year-old male with past medical history significant for hypertension, COPD, and prostate cancer status post prostatectomy and currently undergoing radiation therapy presented to the ED after noticed sudden onset of confusion. #Acute encephalopathy -resolved #Acute CVA ruled out #TIA -DDx: TIA, transient global amnesia - Per this morning Pt was forgetting routine events like taking a shower or not, Pt was unable to recall how old he is. Pt repeatedly ask the same questions after being answer, pt couldn't remember what day it is. Pt is otherwise very sharp and performs ADL independently. -LKW: 10/11/2024 11:00:00 -NIHSS Score: 1 -pre morbid rank scale: Unable to assess -Tele neuro consulted, recommendations appreciated -Head CTA :No significant neck arterial stenoses, No cerebral large vessel arterial occlusions or thrombus -Head CT : Negative for acute hemorrhage, mass effect or midline shift -MRI with MRA: Negative for acute hemorrhage mass effect or midline shift, No acute infarct, Prominent chronic microvascular white matter change, No large vessel cerebral arterial occlusions -ABCD2 score 3- low risk for stroke Plan: - Neuro checks q6HR - Keep head of bed elevated at 30 degrees -?limit sedating meds - Euglycemia and Avoid Hyperthermia (PRN Acetaminophen) -?Allow permissive HTN for first 24 hours than slowly and gradually goal normotension thereafter -?lvcdo-tcaembjol-xqhabxcvke workup (especially with U/A, UCx, CXR)- negative -?echo with bubble study ordered - follow up lipid panel, HbA1c, TSH with free T4- with in normal limits - Referral to PT/OT/speech therapy - In house neurologist consulted, appreciated recommendations -Pt is started on aspirin and statin #Primary Hypertension - On admission Pt BP is 151/91, Pt home med include lisinopril 10mg daily -Will hold home antihypertensive for permissive HTN for 24 hours. #Prostate Cancer s/p protatectomy -Pt was recently diagnosed with prostate cancer, underwent prostatectomy in Jun 2024. -Pt is currently under going radiation [facility] at [facility] -Pt follow Dr. Price and Dr. Thompson outpatient #COPD #Nicotine dependence -Pt has history of smoking 1/2 cigarettes daily daily for 60 years -Although pt is not on home oxygen he does use trelegy ellipta at home -Duonebs PRN -Nicotine Patch ordered for PRN Health Maintenance Disposition: telemetry acute CVA rule out DVT Prophylaxis: Heparin 5000 units SC Q8 hrs Diet: Cardiac diet Lines: Peripheral lines Code status: DNR/DNI Assessment and plan discussed with my senior resident Dr. Herbert & attending physician Dr. Vance Irvin (PGY-1)- Internal medicine resident
[2024-10-12] MEDS: ASPIRIN EC 81 MG TABEC PO (12:35)
--- NOTE | 2024-10-12 15:16 | ECHO_ITS ---
Transthoracic Echo Report Ht (in): 63 Wt (lb): 140 Exam Location: Portable Status: Inpatient Tin Can Laborer: ALMITA Ortega^^^^ Indications: Procedure Performed: BP: 133 / 77 HR: 80 Technical Quality: Fair MEASUREMENTS (Male / Female) Normal Values 2D ECHO LV Diastolic Diameter PLAX 4.5 cm 4.2 - 5.9 / 3.9 - 5.3 cm LV Systolic Diameter PLAX 3.4 cm IVS Diastolic Thickness 0.7 cm 0.6 - 1.0 / 0.6 - 0.9 cm LVPW Diastolic Thickness 0.9 cm 0.6 - 1.0 / 0.6 - 0.9 cm LV Relative Wall Thickness 0.4 LVOT Diameter 1.8 cm Aortic Root Diameter 3.2 cm LA Systolic Diameter LX 3.2 cm 3.0 - 4.0 / 2.7 - 3.8 cm LV Ejection Fraction MOD BP 63.6 % >= 55 % LV Cardiac Index MOD BP 2426.4 cm?/min?m? LV Ejection Fraction MOD 4C 61.2 % LV Cardiac Index MOD 4C 2790.6 cm?/min?m? LV Ejection Fraction 4C AL 62.5 % LV Cardiac Index 4C AL 2965.3 cm?/min?m? LV Ejection Fraction MOD 2C 65.6 % LV Cardiac Index MOD 2C 1839.9 cm?/min?m? LV Ejection Fraction 2C AL 66.4 % LV Cardiac Index 2C AL 1880.9 cm?/min?m? LA Volume Index 19.0 cm?/m? 16 - 28 cm?/m? DOPPLER AV Peak Velocity 116.7 cm/s AV Peak Gradient 5.4 mmHg AV Mean Gradient 2.5 mmHg AV Velocity Time Integral 19.4 cm AI Peak Velocity 273.3 cm/s AI Peak Gradient 29.9 mmHg AI Pressure Half Time 385.3 ms LVOT Peak Velocity 88.7 cm/s LVOT Peak Gradient 3.1 mmHg LVOT Velocity Time Integral 17.5 cm LVOT Cardiac Index 2106.3 cm?/min?m? AV Area Cont Eq vti 2.3 cm? AV Area Cont Eq pk 1.9 cm? MV Area PHT 3.1 cm? Mitral E Point Velocity 50.0 cm/s Mitral A Point Velocity 82.5 cm/s Mitral E to A Ratio 0.6 LV E' Lateral Velocity 9.4 cm/s Mitral E to LV E' Lateral Ratio 5.3 LV E' Septal Velocity 7.1 cm/s Mitral E to LV E' Septal Ratio 7.1 TR Peak Velocity 200.0 cm/s TR Peak Gradient 16.0 mmHg PV Peak Velocity 80.3 cm/s PV Peak Gradient 2.6 mmHg RVOT Peak Velocity 35.5 cm/s FINDINGS Left Ventricle Normal left ventricular size, wall thickness, systolic function with no obvious regional wall motion abnormalities. There is grade I diastolic dysfunction of the left ventricle (impaired relaxation pattern). The left ventricular ejection fraction is normal, estimated at 55-60%. Right Ventricle The right ventricle is normal in size and systolic function. The estimated right ventricular systolic pressure, 16 mmHg. Left Atrium The left atrium is normal by two-dimensional, color flow and Doppler imaging with no structural abnormalities, no thrombus formation present. Right Atrium The right atrium is normal by two-dimensional imaging, color flow and Doppler imaging with no structural abnormalities, no thrombus formation present. Atrial Septum The interatrial septum is normal to color flow Doppler and agitated saline imaging. Aorta The aorta is normal by two-dimensional, color flow and Doppler interrogation. Mitral Valve Mild mitral regurgitation. mild mitral annular calcification. Aortic Valve Diffuse calcification of the aortic valve. Trace to mild aortic valve regurgitation. Tricuspid Valve There is mild tricuspid valve regurgitation. Pulmonic Valve Trivial pulmonic valve regurgitation. Vessels The pulmonary artery appears normal. The inferior vena cava pulmonary and hepatic veins appear normal. Pericardium The pericardium is normal by two-dimensional imaging. There is no significant pericardial effusion. CONCLUSIONS indication: CVA r/o with Bubble LV appears normal with EF 55-60%. Diastolic Dysfunction I present. RV appears normal with RVSP 16 mmHg IAS is normal to color flow Doppler and agitated saline imaging. Negative bubble study Mild MACwith mild MR Aortic valve sclerosis with mild aortic regurgitation Mild TR [place] (Electronically Signed) Final Date: 13 October 2024 13:06
[2024-10-12] MEDS: ATORVASTATIN CALCIUM 20 MG TABLET 40 MG PO (21:26)
[2024-10-13] VITALS (7 sets, daily range): BP systolic 112–131; BP diastolic 65–86; PULSE 71–102; RESP 17–96; TEMP 36.1–36.4; O2SAT 94–97; BMI 23.0
[2024-10-13] MEDS: HEPARIN SOD INJ 5000 UNIT/ML VIAL SC ×3 (05:10→21:52)
[2024-10-13 05:44] LABS: Basophils % (Auto) 0 % (0-2.5); Eosinophils # (Auto) 0.6 Thou/mm3 (0.0-0.5); Eosinophils % (Auto) 9 % (0-10); Hematocrit 40.5 % (41.0-53.0); Hemoglobin 13.6 g/dL (13.5-16.0); Immature Granulocytes % (Auto) 0 % (0-0); Immature Granulocytes Auto 0.02 Thou/mm3 (0.00-0.00); Lymphocytes # (Auto) 1.5 Thou/mm3 (1.0-4.8); Lymphocytes % (Auto) 22 % (10-50); Mean Corpuscular HGB Conc 33.6 g/dl (31.0-37.0); Mean Corpuscular Hemoglobin 29.8 pg (25.0-35.0); Mean Corpuscular Volume 89 fL (80-100); Monocytes # (Auto) 0.7 Thou/mm3 (0.0-0.8); Monocytes % (Auto) 10 % (0-12); Neutrophils % (Auto) 59 % (37-80); Nucleated Red Blood Cell % 0 /100 WBC (0); Platelet Count 196 Thou/mm3 (140-440); Red Blood Count 4.57 Miln/mm3 (4.50-5.90); White Blood Count 6.8 Thou/mm3 (3.8-10.6)
[2024-10-13 06:42] LABS: Alanine Aminotransferase 10 U/L (10-49); Albumin, Serum 3.8 gm/dL (3.4-4.8); Albumin/Globulin Ratio 1.6 (1.2-2.2); Alkaline Phosphatase 100 U/L (46-116); Anion Gap 6 (7-16); Aspartate Amino Transferase 11 U/L (0-34); BUN/Creatinine Ratio 18 Ratio (12-20); Bilirubin,Total 0.5 mg/dL (0.3-1.2); Blood Urea Nitrogen 18 mg/dL (9-23); Calcium 9.5 mg/dL (8.3-10.6); Calcium (Corrected) 9.7 mg/dL (8.5-10.1); Carbon Dioxide 29.5 mMol/L (20.0-31.0); Chloride 108 mMol/L (98-107); Globulin 2.4 gm/dL (2.3-3.5); Glucose 94 mg/dL (74-106); Magnesium 1.9 mg/dL (1.6-2.6); Osmolality,Calculated 286 (275-295); Phosphorous 3.1 mg/dL (2.4-5.1); Potassium 4.6 mMol/L (3.4-5.1); Sodium 143 mMol/L (136-145); Total Protein 6.2 gm/dL (5.7-8.2); eGFR > 60 See Note
[2024-10-13] MEDS: Magnesium Sulfate 1 gm Ivpb 1 GM/100 ML BAG IV (08:35)
[2024-10-13] MEDS: ASPIRIN EC 81 MG TABEC PO (08:35)
--- NOTE | 2024-10-13 14:56 | PC.SS ---
SS follow up note; Echo results pending, Possible discharge tomorrow.
--- NOTE | 2024-10-13 16:40 | ESPR_ITS ---
<Statement entered by Roman Herbert MD - 10/13/24 16:53> Patient was seen and examined at the bedside. Patient was doing fairly well. He reported that he wants to go home however we will keep the patient until neurology has seen the patient. Will wait on the echocardiogram results. Continue with aspirin and statin therapy. Labs were unremarkable. All labs and orders were reviewed. I saw and examined the patient, and I agree with current management stated by Dr Albaro MD,PGY1. Plan of care was discussed with the attending physician and resident physician. Disclaimer: Despite multiple revisions, due to the dictation software being used, the document bellow may not be free of grammatical errors including phonetic/typographic errors. However, this does not deter from our commitment to providing health care in the patient's best interest in mind. Dr. Keon MD, PGY 2 Documentation for date of: 10/13/24 Subjective Subjective Interval history: No overnight events. Patient seen and examined at bedside this morning. Patient is saturating on room air. Patient endorses to complete resolution of his symptoms. States he would like to go home today because he is already missed 2 sessions of radiation therapy. Vital signs labs are reviewed and within normal limits. Patient has no complaints. Exam Vital Signs Temp Pulse Resp BP Pulse Ox O2 Del Method 97.0 F 82 20 112/85 H 95 Room Air 10/13/24 08:00 10/13/24 12:00 10/13/24 08:00 10/13/24 08:00 10/13/24 08:00 10/13/24 08:00 Narrative Exam GENERAL: A&Ox3 . Awake, Not in acute distress NEURO: no focal neurological deficits HEENT: Atraumatic, Normocephalic. mucous membranes moist. Eyes open, symmetrical, & clear HEART: Normal Heart Sounds LUNGS: Clear to auscultation with no wheezing or crackles. ABDOMEN: soft, non-distended, non-tender, bowel sounds heard, no guarding or rebound tenderness SKIN: No Rash or ecchymoses EXTREMITIES: No edema, tenderness, able to move all 4 extremities, pedal pulses palpated Objective Labs 10/13/24 05:05 10/13/24 05:05 Labs: Laboratory Results - last 24 hr 10/13/24 05:05 WBC 6.8 RBC 4.57 Hgb 13.6 Hct 40.5 L MCV 89 MCH 29.8 MCHC 33.6 RDW Std Deviation 42.0 Plt Count 196 Neut % (Auto) 59 Lymph % (Auto) 22 [place] % (Auto) 10 Eos % (Auto) 9 Baso % (Auto) 0 Neut # (Auto) 4.0 Lymph # (Auto) 1.5 [place] # (Auto) 0.7 Eos # (Auto) 0.6 H Baso # (Auto) 0.0 Immature Gran # (Auto) 0.02 H Absolute Nucleated RBC 0.00 Immature Gran % 0 Nucleated RBC % 0 Sodium 143 Potassium 4.6 Chloride 108 H Carbon Dioxide 29.5 Anion Gap 6 L BUN 18 Creatinine 1.0 Estim Creat Clear Calc 45.0 L eGFR > 60 BUN/Creatinine Ratio 18 Glucose 94 Calculated Osmolality 286 Calcium 9.5 Corrected Calcium 9.7 Phosphorus 3.1 Magnesium 1.9 Total Bilirubin 0.5 AST 11 ALT 10 Alkaline Phosphatase 100 Total Protein 6.2 Albumin 3.8 Globulin 2.4 Albumin/Globulin Ratio 1.6 Quality Measures Quality Measures none Advance care planning discussed with:: patient Assessment & Plan Assessment Current Active Medications: Generic Name Dose Route Start Last Admin Trade Name Freq PRN Reason Stop Dose Admin Acetaminophen 325 mg 10/12/24 07:26 Acetaminophen 325 Mg Tablet PO 11/10/24 15:19 Q6HR PRN FEVER >100.3 Albuterol/Ipratropium 3 ml 10/11/24 16:03 Albuterol/Ipratropium (Duoneb) Rt Jonelle 3 Ml Nebu INH 11/10/24 18:59 Q6HRRT PRN shortness of breath orwheezing Aspirin 81 mg 10/12/24 11:15 10/13/24 08:35 Aspirin Ec 81 Mg Tabec PO 11/11/24 11:14 81 mg QDAY BETZAIDA Administration Atorvastatin Calcium 40 mg 10/12/24 21:00 10/12/24 21:26 Atorvastatin Calcium 20 Mg Tablet PO 11/11/24 20:59 40 mg HS BETZAIDA Administration Dextrose 25 ml 10/11/24 15:19 Dextrose 50%-Water Inj 50 Ml Syringe IV 11/10/24 15:18 Q15MIN PRN BG 50-70 responsive npo pt Dextrose 50 ml 10/11/24 15:19 Dextrose 50%-Water Inj 50 Ml Syringe IV 11/10/24 15:18 Q15MIN PRN BG <50 OR BG <70 & pt unresponsive Heparin Sodium (Porcine) 5,000 unit 10/11/24 22:00 10/13/24 14:38 Heparin Sod Inj 5000 Unit/Ml Vial SC 10/25/24 21:59 5,000 unit Q8HR BETZAIDA Administration Nicotine 14 mg 10/11/24 16:03 Nicotine Patch 14 Mg/24 Hr Patch.Td24 TOP 11/10/24 16:14 QDAY PRN nicotine withdrawal Ondansetron HCl 4 mg 10/11/24 15:17 Ondansetron Inj 2 Mg/Ml Inj 2 Ml IV 11/10/24 15:16 Q4HR PRN NAUSEA OR VOMITING Plan Mr. Avila is an 84-year-old male with past medical history significant for hypertension, COPD, and prostate cancer status post prostatectomy and currently undergoing radiation therapy presented to the ED after noticed sudden onset of confusion. #Acute encephalopathy -resolved #Acute CVA ruled out #TIA -DDx: TIA, transient global amnesia - Per this morning Pt was forgetting routine events like taking a shower or not, Pt was unable to recall how old he is. Pt repeatedly ask the same questions after being answer, pt couldn't remember what day it is. Pt is otherwise very sharp and performs ADL independently. -LKW: 10/11/2024 11:00:00 -NIHSS Score: 1 -pre morbid rank scale: Unable to assess -Tele neuro consulted, recommendations appreciated -Head CTA :No significant neck arterial stenoses, No cerebral large vessel arterial occlusions or thrombus -Head CT : Negative for acute hemorrhage, mass effect or midline shift -MRI with MRA: Negative for acute hemorrhage mass effect or midline shift, No acute infarct, Prominent chronic microvascular white matter change, No large vessel cerebral arterial occlusions -ABCD2 score 3- low risk for stroke Plan: - Neuro checks q6HR - Keep head of bed elevated at 30 degrees -?limit sedating meds - Euglycemia and Avoid Hyperthermia (PRN Acetaminophen) -?Allow permissive HTN for first 24 hours than slowly and gradually goal normotension thereafter -?whofs-iycbbtedv-wkocareltm workup (especially with U/A, UCx, CXR)- negative -?echo with bubble study done, negative for bubble study - follow up lipid panel, HbA1c, TSH with free T4- with in normal limits - Referral to PT/OT/speech therapy - In house neurologist consulted, appreciated recommendations -Pt is started on aspirin and statin #Primary Hypertension - On admission Pt BP is 151/91, Pt home med include lisinopril 10mg daily -Will hold home antihypertensive for permissive HTN for 24 hours. #Prostate Cancer s/p protatectomy -Pt was recently diagnosed with prostate cancer, underwent prostatectomy in Jun 2024. -Pt is currently under going radiation therapy at [facility] -Pt follow Dr. Price and Dr. Thompson outpatient #COPD #Nicotine dependence -Pt has history of smoking 1/2 cigarettes daily daily for 60 years -Although pt is not on home oxygen he does use trelegy ellipta at home -Duonebs PRN -Nicotine Patch ordered for PRN Health Maintenance Disposition: telemetry acute CVA rule out DVT Prophylaxis: Heparin 5000 units SC Q8 hrs Diet: Cardiac diet Lines: Peripheral lines Code status: DNR/DNI Assessment and plan discussed with my senior resident Dr. Herbert & attending physician Dr. Vance Irvin (PGY-1)- Internal medicine resident
[2024-10-13] MEDS: ATORVASTATIN CALCIUM 20 MG TABLET 40 MG PO (21:52)
--- NOTE | 2024-10-13 22:22 | PD.NEUROPROG ---
Documentation for date of: 10/13/24 Subjective Subjective Interval history: Patient was seen in telemetry today. No new symptoms or recurrent episodes of TIA after admission. Anxious to be discharged home Exam - Neurology Vital Signs Temp Pulse Resp BP Pulse Ox O2 Del Method 97.5 F 83 17 120/77 97 Room Air 10/13/24 20:00 10/13/24 20:00 10/13/24 20:00 10/13/24 20:00 10/13/24 20:00 10/13/24 20:00 Narrative Exam GENERAL APPEARANCE: Well hydrated, well-nourished in no acute distress. HEENT: Normocephalic, atraumatic, extraocular movements intact. Pupils: Equal reacting to light and accommodation NECK: Supple, no JVD or bruits. CARDIOVASULAR: Heart: S1, S2 heard, regular without S3-S4 or murmur no rubs or gallops. LUNGS/CHEST: Clear to auscultation bilaterally. No rails, rhonchi, or wheezing. Normal inspection. ABDOMEN: Soft, nontender, with normal bowel sounds. No pulsatile masses. No rebound, rigidity, or guarding. Normal inspection and palpation. EXTREMITIES: Normal inspection and palpation. No edema, clubbing or cyanosis. SKIN: Warm and dry without rashes. Normal inspection. MUSCULOSKELETAL: No cervical, thoracic, lumbar or midline bony tenderness. Normal inspection. NEURO: Alert, awake and oriented x3. Cranial nerves: II through XII grossly intact. Speech and language: Normal with no dysarthria or dysphasia. Motor system: Tone and bulk: Normal: Strength: 5 out of 5 in all 4 extremities; No pronator drift noted. Deep tendon reflexes: 2+ bilaterally symmetrical. Plantar reflex: Downgoing bilaterally. Sensory system: Intact to all modalities of sensation bilaterally. Coordination: Intact to laduhd-owza-kzoth and cggs-silx-fhvr test bilaterally. No ataxia, no dysmetria, or dysdiadochokinesia noted. No intention tremors noted. Gait: Normal. Toe, heel, tandem walk all are normal. Romberg: Negative. No signs of meningeal irritation noted. PSYCHIATRIC: Normal mood and affect. Objective Labs 10/14/24 05:01 10/14/24 05:01 Labs: Laboratory Results - last 24 hr 10/13/24 05:05 WBC 6.8 RBC 4.57 Hgb 13.6 Hct 40.5 L MCV 89 MCH 29.8 MCHC 33.6 RDW Std Deviation 42.0 Plt Count 196 Neut % (Auto) 59 Lymph % (Auto) 22 [place] % (Auto) 10 Eos % (Auto) 9 Baso % (Auto) 0 Neut # (Auto) 4.0 Lymph # (Auto) 1.5 [place] # (Auto) 0.7 Eos # (Auto) 0.6 H Baso # (Auto) 0.0 Immature Gran # (Auto) 0.02 H Absolute Nucleated RBC 0.00 Immature Gran % 0 Nucleated RBC % 0 Sodium 143 Potassium 4.6 Chloride 108 H Carbon Dioxide 29.5 Anion Gap 6 L BUN 18 Creatinine 1.0 Estim Creat Clear Calc 45.0 L eGFR > 60 BUN/Creatinine Ratio 18 Glucose 94 Calculated Osmolality 286 Calcium 9.5 Corrected Calcium 9.7 Phosphorus 3.1 Magnesium 1.9 Total Bilirubin 0.5 AST 11 ALT 10 Alkaline Phosphatase 100 Total Protein 6.2 Albumin 3.8 Globulin 2.4 Albumin/Globulin Ratio 1.6 Assessment & Plan Assessment and plan (1) Brain TIA: Status: Resolved Assessment and plan: No recurrence reported after admission. Reassurance given to the patient regarding the negative MRI brain for acute infarction. MRI showed prominent chronic white matter changes. Echocardiogram: LV appears normal with EF 55-60%. Diastolic Dysfunction I present. RV appears normal with RVSP 16 mmHg IAS is normal to color flow Doppler and agitated saline imaging. Negative bubble study Mild MACwith mild MR Aortic valve sclerosis with mild aortic regurgitation Mild TR Will keep him on aspirin and statin as he LDL is over 70 and HDL is very very low. Patient is stable from neurology standpoint for discharge.
[2024-10-14] VITALS: BP 113/63; PULSE 73; PULSE 75; RESP 17; TEMP 37.1; O2SAT 93
--- NOTE | 2024-10-14 03:20 | PC.NURSE ---
[facility]24 from 0200 to 0320.
[2024-10-14 04:00] VITALS: BP 103/54; PULSE 72; PULSE 73; RESP 19; TEMP 36.3; O2SAT 94
[2024-10-14 04:11] VITALS: PULSE 73; RESP 17; O2SAT 93
[2024-10-14 05:11] VITALS: BMI 23.3
[2024-10-14 05:27] LABS: Basophils % (Auto) 0 % (0-2.5); Eosinophils # (Auto) 0.5 Thou/mm3 (0.0-0.5); Eosinophils % (Auto) 8 % (0-10); Hematocrit 39.8 % (41.0-53.0); Hemoglobin 13.3 g/dL (13.5-16.0); Immature Granulocytes % (Auto) 0 % (0-0); Immature Granulocytes Auto 0.01 Thou/mm3 (0.00-0.00); Lymphocytes # (Auto) 1.5 Thou/mm3 (1.0-4.8); Lymphocytes % (Auto) 25 % (10-50); Mean Corpuscular HGB Conc 33.4 g/dl (31.0-37.0); Mean Corpuscular Hemoglobin 29.1 pg (25.0-35.0); Mean Corpuscular Volume 87 fL (80-100); Monocytes # (Auto) 0.6 Thou/mm3 (0.0-0.8); Monocytes % (Auto) 11 % (0-12); Neutrophils # (Auto) 3.4 Thou/mm3 (1.8-7.7); Neutrophils % (Auto) 56 % (37-80); Nucleated Red Blood Cell % 0 /100 WBC (0); Platelet Count 200 Thou/mm3 (140-440); RDW Standard Deviation 41.2 fL (35.1-43.9); Red Blood Count 4.57 Miln/mm3 (4.50-5.90); White Blood Count 6.1 Thou/mm3 (3.8-10.6)
[2024-10-14] MEDS: HEPARIN SOD INJ 5000 UNIT/ML VIAL SC (05:58)
[2024-10-14 06:01] LABS: Alanine Aminotransferase 8 U/L (10-49); Albumin, Serum 3.7 gm/dL (3.4-4.8); Albumin/Globulin Ratio 1.5 (1.2-2.2); Alkaline Phosphatase 102 U/L (46-116); Anion Gap 7 (7-16); Aspartate Amino Transferase < 10 U/L (0-34); BUN/Creatinine Ratio 20 Ratio (12-20); Bilirubin,Total 0.6 mg/dL (0.3-1.2); Blood Urea Nitrogen 18 mg/dL (9-23); Calcium 9.3 mg/dL (8.3-10.6); Calcium (Corrected) 9.5 mg/dL (8.5-10.1); Carbon Dioxide 28.3 mMol/L (20.0-31.0); Chloride 108 mMol/L (98-107); Creatinine (Component) 0.9 mg/dL (0.6-1.3); Estimated Creatinine Clearance 50.1 mL/min (>60); Globulin 2.5 gm/dL (2.3-3.5); Glucose 91 mg/dL (74-106); Osmolality,Calculated 286 (275-295); Phosphorous 3.2 mg/dL (2.4-5.1); Potassium 4.4 mMol/L (3.4-5.1); Sodium 143 mMol/L (136-145); Total Protein 6.2 gm/dL (5.7-8.2); eGFR > 60 See Note
[2024-10-14 06:54] VITALS: PULSE 100; RESP 20; O2SAT 97
[2024-10-14 08:00] VITALS: BP 134/82; PULSE 107; PULSE 82; RESP 17; TEMP 36.4; O2SAT 97
[2024-10-14] MEDS: ASPIRIN EC 81 MG TABEC PO (09:46)
== END 2024-10-14 11:36 | disposition home or self-care (01) | DRG 69 ==
LOC: SERX 15:03 → SERHOLD 15:22 → S2NX 16:26
PROVIDERS: Physician Assistant; Admitting Provider Internal Medicine; Emergency Provider Emergency Medicine; PCP Family Medicine; Visit Provider Student in an Organized Health Care Education/Training Program
DX: G45.9 Transient cerebral ischemic attack, unspecified (principal); G93.41 Metabolic encephalopathy; I10 Essential (primary) hypertension; C61 Malignant neoplasm of prostate; J44.9 Chronic obstructive pulmonary disease, unspecified; I35.8 Other nonrheumatic aortic valve disorders; F17.210 Nicotine dependence, cigarettes, uncomplicated; Z66 Do not resuscitate; Z90.79 Acquired absence of other genital organ(s); Z79.899 Other long term (current) drug therapy; Z92.3 Personal history of irradiation
CPT/HCPCS: 36415; 70450; 70496; 70498; 70544; 71045; 80053; 80061; 81001; 83036; 83735; 84100; 84439; 84443; 84484; 85025; 85610; 85730; 87400; 87811; 93005; 93306; 94664; 94762; 99285; A4649; J1643; J3475; Q9967; A9270

== ENCOUNTER 2024-11-05 12:58 | Outpatient (RCR) | payer MEDICARE, BC, SELFPAY ==
--- NOTE | 2024-10-14 13:27 | PD.RESDS ---
Planned Discharge Date 10/14/24 DS: Providers Provider Primary care physician: Pardeep Gil Attending Provider on Admission: Rajat Price MD Attending Provider on DC: Elie Irvin MD Discharging Provider: Elie Irvin MD DS: Diagnosis Problem List Completed Was Problem List Reviewed/Reconciled?: Yes Hospital Course Hospital Course Hospital course: Mr. Avila is an 84-year-old male with past medical history significant for hypertension, COPD, and prostate cancer status post prostatectomy and currently undergoing radiation therapy presented to [facility] ED on 10/11/2024 after noticed sudden onset of confusion. On arrival stroke alert was called and neurologist was consulted, IN the ED during teleneuro visits Pt's symptoms completed resolved and back to baseline. Pt denied any previous episodes of similar symptoms. Pt had complete work up for acute CVA which was ruled out as CT, CTA, MRI and physical exam was negative for stroke. Pt was seen by inhouse neurologist Dr. Ernst. Given the complete resolution of the patient's symptoms, it was likely transient ischemic attack (TIA), Pt's ABCD2 score was 3 and pt was started on low dose aspirin and atorvastatin. Pt had no neurologic deficit noted, Pt's hemodynamically and clinically stable to be discharge home to self care. Images Head CTA :No significant neck arterial stenoses, No cerebral large vessel arterial occlusions or thrombus -Head CT : Negative for acute hemorrhage, mass effect or midline shift -MRI with MRA: Negative for acute hemorrhage mass effect or midline shift, No acute infarct, Prominent chronic microvascular white matter change, No large vessel cerebral arterial occlusions -Echo with bubble study: normal findings with EF 55-60% adn negative bubble study Discharge Recommendations -Take medications as directed -You have been started on aspirin and statin -Follow up with primary care physician with in 2 weeks -Counseled against smoking Hospitalization Diagnosis #Acute encephalopathy -resolved #Acute CVA ruled out #TIA #Primary Hypertension #Prostate Cancer s/p protatectomy #COPD #Nicotine dependence Assessment and plan discussed with my attending physician Dr. Xiomy Irvin (PGY-1)- Internal medicine resident Time Spent with Patient Time attestation: Total time spent providing and/or coordinating discharge services: Time spent: Greater than 30 minutes Exam Narrative Exam GENERAL: A&Ox3 . Awake, Not in acute distress NEURO: no focal neurological deficits HEENT: Atraumatic, Normocephalic. mucous membranes moist. Eyes open, symmetrical, & clear HEART: Normal Heart Sounds LUNGS: Clear to auscultation with no wheezing or crackles. ABDOMEN: soft, non-distended, non-tender, bowel sounds heard, no guarding or rebound tenderness SKIN: No Rash or ecchymoses EXTREMITIES: No edema, tenderness, able to move all 4 extremities, pedal pulses palpated Discharge Plan Plan Patient Disposition: HOME (Self Care) Prescriptions/Referrals Prescriptions/Med Rec: No Action No Known Home Medications aspirin [Ecotrin Low Strength] 81 mg Tablet,Delayed Release (Dr/Ec) 81 mg PO QDAY Qty: 90 0RF atorvastatin 40 mg tablet 40 mg PO HS Qty: 90 0RF Referrals: Pardeep Gil [Primary Care Provider] - Patient/Caregiver Discharge Instructions Print Language: [place] Island[place] Stand Alone Forms: Patient Portal Info Letter Quality Discharge Quality Measures VTE prophylaxis MD Attestestation Attestation I have discussed and was present for the essential components of the discharge history, physical examination, diagnosis, and discharge treatment plan with the resident. I agree with the patient's discharge care as documented by the resident and amended herein by me. Efren Stauffer DO. The patient understood all discharge instructions, all questions were answered satisfactorily. The patient was instructed to return to the Emergency Department is symptoms worsened or persisted. Patient was stable, afebrile, tolerating p.o. intake at time of discharge. Although this document has been carefully reviewed, there may still be some phonetic and other typographical errors. These errors are purely grammatical due to imperfections in the software program and should not be construed in any way to compromise the substance of the patient's medical care during this visit.
--- NOTE | 2024-10-15 16:38 | CTCTRTNOTE_ITS ---
[facility] [address], [place] [address] Weekly Management Date: 10/15/2024 ?? Name: BOB MEADOWS : 1940 A. Patient is currently at 4140cGy. B. Patient is tolerating treatment well. Spent few days in hospital for TIA CVA ruled out. C. Resume radiation therapy. Electronically signed by: Rajat Price M.D. 10/15/2024 4:36 PM
== END 2024-11-09 23:59 | disposition home or self-care (01) ==
LOC: SCTC 12:58
PROVIDERS: PCP Internal Medicine; Referring Provider Internal Medicine; Visit Provider Radiology Therapeutic Radiology
DX: Z51.0 Encounter for antineoplastic radiation therapy (principal); C61 Malignant neoplasm of prostate; Z90.79 Acquired absence of other genital organ(s)
CPT/HCPCS: 77336; 77385; 99424; 99425

== ENCOUNTER → 2024-11-23 | Outpatient (BNVA) | payer MEDICARE, BC, SELFPAY | END | disposition home or self-care (01) | PROVIDERS: PCP Internal Medicine; Referring Provider Internal Medicine; Visit Provider Urology | DX: C61 Malignant neoplasm of prostate (principal); Z90.79 Acquired absence of other genital organ(s); N39.3 Stress incontinence (female) (male); Z92.3 Personal history of irradiation | CPT/HCPCS: 81003; 99212; G0463 ==

== ENCOUNTER → 2024-11-23 | Outpatient (CLI) | payer MEDICARE, BC, SELFPAY ==
[2024-11-23 14:39] LABS: Prostate Specific Antigen < 0.10 ng/mL (0-4.00)
== END | disposition home or self-care (01) ==
LOC: SCTC 11-24 06:12 → SCTO 11-27 09:30
PROVIDERS: PCP Internal Medicine; Referring Provider Radiology Therapeutic Radiology; Visit Provider Emergency Medicine
DX: C61 Malignant neoplasm of prostate (principal)
CPT/HCPCS: 84153

== ENCOUNTER 2024-12-01 13:45 | Outpatient (RCR) | payer MEDICARE, BC, SELFPAY | END 2024-12-09 23:59 | disposition home or self-care (01) | LOC: SCTC 13:45 | PROVIDERS: PCP Internal Medicine; Referring Provider Internal Medicine; Visit Provider Radiology Therapeutic Radiology | DX: C61 Malignant neoplasm of prostate (principal) | CPT/HCPCS: 99213; G0463 ==

== ENCOUNTER → 2024-12-25 | Outpatient (CLI) | payer MEDICARE, BC, SELFPAY | END | disposition home or self-care (01) | LOC: SLDO 14:31 | PROVIDERS: Referring Provider Nurse Practitioner Family; Visit Provider Nurse Practitioner Family | DX: N39.0 Urinary tract infection, site not specified (principal) | CPT/HCPCS: 87077; 87086; 87186 ==

== ENCOUNTER → 2025-06-01 | Outpatient (BNVA) | payer MEDICARE, BC, SELFPAY | END | disposition home or self-care (01) | PROVIDERS: PCP Internal Medicine; Referring Provider Internal Medicine; Visit Provider Urology | DX: C61 Malignant neoplasm of prostate (principal); N39.46 Mixed incontinence; M19.90 Unspecified osteoarthritis, unspecified site; I10 Essential (primary) hypertension; F17.210 Nicotine dependence, cigarettes, uncomplicated; Z71.6 Tobacco abuse counseling | CPT/HCPCS: 81003; 99212; G0463 ==

== ENCOUNTER 2025-06-02 13:00 | Outpatient (RCR) | payer MEDICARE, BC, SELFPAY ==
--- NOTE | 2025-06-02 14:18 | CTCFLWUP_ITS ---
[facility] [address] [place], [place] [address] FOLLOW-UP NOTE Date: 06/02/2025 MR#: [id number] Name: BOB MEADOWS : 1940 Dx: [id number] Malignant neoplasm of prostate Identification. 85-year-old gentleman received radiation therapy for prostate cancer PSA less than 0.1 on 11/23/2024. Originally had surgery 06/24/2024 at [facility]. Patient doing well overall with no pelvic symptoms. PSA less than 0.04 at [facility] lab. I will see him again in 6 months with another PSA. Electronically signed by: Rajat Price M.D. 06/02/2025 2:16 PM
== END 2025-06-11 23:59 | disposition home or self-care (01) ==
LOC: SCTC 13:00
PROVIDERS: PCP Internal Medicine; Referring Provider Internal Medicine; Visit Provider Radiology Therapeutic Radiology
DX: C61 Malignant neoplasm of prostate (principal); Z92.3 Personal history of irradiation
CPT/HCPCS: 99213; G0463